=== PATIENT | male | born 1980 | race Caucasian/White ===

== ENCOUNTER 2024-04-28 20:25 | Emergency (ER) | payer MEDICARE, SELFPAY ==
[2024-04-28 20:28] VITALS: BP 132/87
[2024-04-28 21:27] VITALS: BP 144/85
--- NOTE | 2024-04-28 21:38 | ED.GENMED ---
History of Present Illness
General
Chief Complaint: Exposure-Chemical
Source: patient
Exam Limitations: none
Time Seen by Provider: 04/28/24 21:15
Nursing documentation reviewed up to this point in time: agreed with
History of Present Illness
History of Present Illness:
Patient presents to ED for evaluation after accidentally swallowing cleaning solution called (green clean), an approximately 2 hours ago. Patient states that as soon as he took a sip, he realized that it was not water and proceeded to immediately
spit it out. Afterwards, he gargled his mouth with water as well as mouthwash. Denies sore throat. Denies abdominal pain. Denies nausea or vomiting. Denies shortness of breath.
Past History
Past History
ED Past Medical History: None
ED Past Surgical History: None
Social History
Tobacco: Smoker
Living: with family
Review of Systems
Review of Systems
Allergies reviewed?: Yes
Constitutional: Reports no symptoms
EENT: Reports no symptoms
Respiratory: Reports no symptoms; Denies trouble breathing
Cardiac: Reports no symptoms; Denies chest pain
ABD/GI: Reports no symptoms; Denies abdominal pain, nausea or vomiting
Musculoskeletal: Reports no symptoms
Skin: Reports no symptoms
Neurological: Reports no symptoms
Phy Exam
Physical Exam
Physical Exam:
Physical Exam
General: no apparent distress, not acutely ill. afebrile
Head: nc/at. eomi
Neck: supple. no meningeal signs.
Heart: s1/s2 regular rate and rhythm, no murmur. equal radial pulses.
Lungs: no acute respiratory distress. clear bilaterally
Abdomen: normal bowel sounds. not tender.
Neuro: alert and oriented. no focal neurological deficits
Skin: no rash
Psychiatric: well kept. interactive and cooperative
Extremities: no edema. no calf tenderness.
Course
Vital Signs
Initial and Last Documented VS:
Initial Vital Signs
Temp Pulse BP Pulse Ox
97.9 F 102 132/87 96
04/28/24 20:28 04/28/24 20:28 04/28/24 20:28 04/28/24 20:28
Last Documented Vital Signs
Temp Pulse Resp BP Pulse Ox
97.9 F 89 16 144/85 97
04/28/24 20:28 04/28/24 21:27 04/28/24 21:27 04/28/24 21:27 04/28/24 21:27
MDM/Problems Addressed
MDM/Problems Addressed:
Discussed with [facility] toxicology service -feels that patient can be discharged home after 4-hour observation from time of ingestion, as long as he is able to tolerate oral challenge without any difficulties.
*Critical Care Note
Total Time (30-74mins, 75-104mins- exclusive of procedures): Not Applicable
ED Attending Note
-
Portions of this chart may have been created with voice recognition software.� Occasional wrong word or��sound alike� substitutions may have occurred due to the inherent limitations of voice recognition software.
Discharge Plan
Departure
Patient Disposition: Home (Routine Discharge)
Date of Disposition: 04/28/24
Time of Disposition: 22:18
Patient with high blood pressure during this ER visit?: Yes
Condition: Good
Discharge Problem:
Accidental ingestion of substance
Instructions: Chemical Ingestion (DC)
Prescriptions:
No Action
lorazepam 1 MG tablet
1 mg PO Q4HPRN PRN (Reason: anxiety) Qty: 20 0RF
famotidine 20 MG tablet
20 mg PO BID Qty: 28 0RF
Rx Instructions:
Take 20 mg twice a day for 14 days
aspirin 81 MG tablet,chewable
81 mg PO DAILY Qty: 14 0RF
Rx Instructions:
Take 81 mg daily for 14 days
cholecalciferol (vitamin D3) 1,000 UNITS tablet
2,000 units PO DAILY Qty: 28 0RF
Rx Instructions:
Take 2,000 units daily for 14 days
Referrals:
NONE,* [Family Provider] -
Activity Restrictions/Additional Instructions:
As discussed, please follow-up with your primary care physician with any further concerns.
Interventions
Interventions:
*Risk Screen - Suicide Last Done: 04/28/24 21:27
*General Assessment Last Done: 04/28/24 21:27
*Neglect/Abuse Screening Last Done: 04/28/24 21:27
*ED COVID-19 Vaccine History Last Done: 04/28/24 21:27
*Nursing Disposition Last Done: 04/28/24 22:25
ED-EENT Assessment Last Done: 04/28/24 21:27
ED- Pulmonary Assessment Last Done: 04/28/24 21:27
ED-Skin Assessment Last Done: 04/28/24 21:27
Discharge Date and Time
Discharge Date/Time: 04/28/24 22:25
Print Language: [place]
== END 2024-04-28 22:25 | disposition home or self-care (01) ==
LOC: EMR 20:25
PROVIDERS: EMERGENCY PHYSICIAN Emergency Medicine
DX: T50.991A Poisoning by other drugs, medicaments and biological substances, accidental (unintentional), initial encounter (principal); R03.0 Elevated blood-pressure reading, without diagnosis of hypertension; E11.9 Type 2 diabetes mellitus without complications; F17.200 Nicotine dependence, unspecified, uncomplicated
CPT/HCPCS: 99282